=== PATIENT | male | born 1970 | race Caucasian/White ===

== ENCOUNTER → 2021-01-01 | Outpatient (CLI) | payer OTHER ==
--- NOTE | 2021-01-02 14:33 | ECHO ---
DATE OF PROCEDURE: 01/01/2021 Age: 50 Gender: Male Height: 69 inches Weight: 195 pounds Body Surface Area: 2.04 m2 PATIENT LOCATION: Outpatient. REFERRING PHYSICIAN: Dr. Cyndi Eaton. INDICATION: Dyspnea. MEASUREMENTS: 2D Measurements: RV 3.8 cm LV 4.9 cm Septum 1.2 cm Posterior wall 1.2 cm LA 4.0 cm LVEF 50% Doppler Measurements: AV 1.0 m/s LVOT - 0.85 m/s LVOT diameter 2.1 cm MV-E 87, A 93, EA ratio 0.9 Early mitral deceleration time 218 msec E prime medial 5.3, A prime medial 8, E prime lateral 8 Average E/E prime ratio 13/PCWP 18 mmHg PV (could not be well visualized) RVSP (could not be estimated due to inability to obtain a clear spectral envelope with the observed tricuspid insufficiency). Normal IVC size and collapse against an elevated central venous pressure. COMMENTS: Normal sinus rhythm without intraventricular conduction disturbance. A technically challenging study in light of the patient's prior smoking history, but some diagnostically useful information was still obtained. M-mode and 2-dimensional echocardiography was performed with pulse, continuous wave, color flow, and tissue Doppler studies. Borderline concentric left ventricular hypertrophy with normal wall motion. Mildly dilated left atrium with grade 1 LV diastolic dysfunction and borderline increased estimated mean left atrial pressure. Normal right heart chamber sizes and motion, but we could not accurately estimate his pulmonary arterial pressure. Normal IVC size and collapse against an elevated central venous pressure. Normal aortic dimensions. Normal appearing aortic valve without stenosis or insufficiency. Normal appearing mitral valve with normal leaflet excursion and no posterior systolic buckling. Very mild mitral insufficiency (likely physiologic). Tricuspid valve could not be visualized well but did not appear to be abnormal. No abnormal degree of insufficiency of the valve. No apparent intracardiac mass or pericardial effusion. MTDD
== END ==
LOC: M CARPUL 11:12
PROVIDERS: ATTEND Family Medicine
DX: R06.09 Other forms of dyspnea (principal); I10 Essential (primary) hypertension; I38 Endocarditis, valve unspecified

== ENCOUNTER → 2021-01-30 | Outpatient (CLI) | payer OTHER ==
--- NOTE | 2021-01-30 15:13 | PFTRPT ---
Height: 70.00 Inches Weight: 190.00 Lbs BSA: 2.04 Diagnosis: R91.1 DATE: 01/30/2021 ORDERING PHYSICIAN: Arthur Pierre MD Pre and post bronchodilator studies have excellent technical quality. Forced vital capacity is severely reduced. FEV1 is out of proportion. Obstructive index is therefore reduced. Expiratory limit of the flow-volume loop consistent with very significant flow rate limitation. No significant bronchodilator response is identified. Total lung capacity is elevated. Residual volume is consistent with very significant air trapping. Diffusing capacity is severely reduced but does correct for alveolar volume. Hemoglobin is acceptable at 14.6. Airway resistance and conductance are normal. IMPRESSION: At least moderate obstructive ventilatory impairment with underlying air trapping. No bronchodilator response. Please correlate clinically. MTDD
== END ==
LOC: M CARPUL 14:48
PROVIDERS: ATTEND Internal Medicine Pulmonary Disease
DX: J98.8 Other specified respiratory disorders (principal)

== ENCOUNTER → 2021-03-17 | Outpatient (CLI) | payer OTHER ==
--- NOTE | 2021-03-17 17:48 | REP ---
INDICATION: SOLITARY PULMONARY NODULE R91.1. COMPARISON: CT study from [facility] dated December 27, 2020 describes a 1.1 cm spiculated nodule in the right upper lobe and distal esophageal mural thickening.. TECHNIQUE: Fifty-four minutes following the intravenous injection of a 10.15 mCi dose of F-18 FDG, three-dimensional PET scintigraphy is acquired from the skull base to the proximal thighs. Triplanar noncontrast CT scanning is acquired through the same anatomic range for attenuation correction, and image registration with scan parameters optimized to minimize radiation exposure to the patient. PET scintigraphy and CT datasets were fused and displayed on a workstation with multiplanar and projection display capability. FINDINGS: In the head and neck soft tissues, there is symmetric tonsillar and midline tongue base uptake consistent with lingual tonsillar uptake. No hypermetabolic adenopathy is seen. There is no evidence of hilar or mediastinal vane uptake. There are calcified granulomatous nodules in the right lower lobe and right upper lobe. No soft tissue nodule is appreciated on accompanying CT. There is no abnormal hypermetabolic pulmonary parenchymal uptake. Maximum standard uptake value in the calcified granuloma in the right upper lobe is 1.0. There is a segment of the esophagus demonstrating esophageal thickening and linear hypermetabolic uptake. Hypermetabolic uptake can be seen in the esophageal mucosa as a normal variant but the esophageal wall appears thickened and is must be considered suspicious and correlated endoscopically. Maximum standard uptake value is 12.55. No upper abdominal vane hypermetabolic uptake is appreciated. No abnormal hepatic uptake is seen. Normal adrenal uptake take is appreciated. No abnormal hypermetabolic abdominal or pelvic uptake focus is seen. IMPRESSION: 1. No abnormal hypermetabolic pulmonary parenchymal uptake. Granulomatous calcified nodules in the right upper lobe and right lower lobe. 2. Hypermetabolic uptake in the distal 3rd of the esophagus in combination with a soft SAYRA wall thickening, rule out esophageal malignancy. Endoscopic correlation is recommended. 3. Equivocal uptake in the tonsillar and lingual tonsillar region in the head and neck. <Electronically signed by Holland Cramer > 03/17/21 [id number]
== END ==
LOC: M PLARAD 11:04
PROVIDERS: ATTEND Internal Medicine Pulmonary Disease
DX: R91.1 Solitary pulmonary nodule (principal)
CPT/HCPCS: 78815; A9552

== ENCOUNTER → 2021-04-23 | Outpatient (CLI) | payer OTHER ==
[~2021-04-23] MED LIST: ARNU1INH3 IN; METO25TA4 PO; STIO1AER IN; WELL200T PO
== END ==
LOC: M LABSMTC 11:43
PROVIDERS: ATTEND Anesthesiology
DX: Z01.812 Encounter for preprocedural laboratory examination (principal); Z20.822 Contact with and (suspected) exposure to COVID-19

== ENCOUNTER 2021-04-28 10:29 | Day surgery (SDC) | payer OTHER ==
[~2021-04-28] VITALS: Ht 175.3 cm; Wt 83.0 kg
[~2021-04-28 10:29] MED LIST changes: +LIDOCAINE 2% 100MG/5ML SDV (FOR ANES.) As Ordered ONE; +NS 1,000 ML IV ONE; +propofoL 200 MG/20 ML VIAL As Ordered ONE
--- NOTE | 2021-04-28 12:27 | ROOR ---
Patient Name: Brien Remy Procedure Date: 04/28/2021 12:03 PM Date of : 1970 Age: 50 Room: [facility] Gender: Male Note Status: Finalized Procedure: Upper GI endoscopy Indications: Abnormal PET scan of the GI tract Providers: Jovanny Milan Jr, MD Referring MD: Cyndi Eaton DO Requesting Provider: Medicines: Propofol per Anesthesia Complications: No immediate complications. Procedure: Pre-Anesthesia Assessment: - Prior to the procedure, a History and Physical was performed, and patient medications and allergies were reviewed. The patient is competent. The risks and benefits of the procedure and the sedation options and risks were discussed with the patient. All questions were answered and informed consent was obtained. Patient identification and proposed procedure were verified by the physician and the nurse in the pre-procedure area and in the procedure room. Mental Status Examination: alert and oriented. Airway Examination: normal oropharyngeal airway and neck mobility. Respiratory Examination: clear to auscultation. CV Examination: normal. ASA Grade Assessment: II - A patient with mild systemic disease. After reviewing the risks and benefits, the patient was deemed in satisfactory condition to undergo the procedure. The anesthesia plan was to use moderate sedation / analgesia (conscious sedation). Immediately prior to administration of medications, the patient was re-assessed for adequacy to receive sedatives. The heart rate, respiratory rate, oxygen saturations, blood pressure, adequacy of pulmonary ventilation, and response to care were monitored throughout the procedure. The physical status of the patient was re-assessed after the procedure. The Endoscope was introduced through the mouth, and advanced to the second part of duodenum. The upper GI endoscopy was accomplished without difficulty. The patient tolerated the procedure well. Findings: The upper third of the esophagus and middle third of the esophagus were normal. A large, fungating and ulcerating mass with bleeding and stigmata of recent bleeding was found in the lower third of the esophagus, 38 cm from the incisors. The mass was partially obstructing and partially circumferential (involving one-third of the lumen circumference). Biopsies were taken with a cold forceps for histology. The cardia, gastric fundus, prepyloric region of the stomach and pylorus were normal. Moderate inflammation characterized by congestion (edema), erythema and friability was found in the gastric body. Biopsies were taken with a cold forceps for histology. The duodenal bulb, first portion of the duodenum and second portion of the duodenum were normal. Impression: - Normal upper third of esophagus and middle third of esophagus. - Partially obstructing, likely malignant esophageal tumor was found in the lower third of the esophagus. Biopsied. - Normal cardia, gastric fundus, prepyloric region of the stomach and pylorus. - Gastritis. Biopsied. - Normal duodenal bulb, first portion of the duodenum and second portion of the duodenum. Recommendation: - Discharge patient to home (ambulatory). - Return to my office in 1 week. Procedure Code(s): --- Professional --- 76962, Esophagogastroduodenoscopy, flexible, transoral; with biopsy, single or multiple Diagnosis Code(s): --- Professional --- D49.0, Neoplasm of unspecified behavior of digestive system K29.70, Gastritis, unspecified, without bleeding R93.3, Abnormal findings on diagnostic imaging of other parts of digestive tract CPT copyright 2019 [employer]. All rights reserved. The codes documented in this report are preliminary and upon back seam stitcher review may be revised to meet current compliance requirements. Jovanny Milan MD Jovanny Milan Jr, MD 04/28/2021 12:26:59 PM Electronically signed by Jovanny Milan Jr, MD Number of Addenda: 0 Note Initiated On: 04/28/2021 12:03 PM Estimated Blood Loss: Estimated blood loss: none.
--- NOTE | 2021-04-28 12:49 | ROOR ---
Patient Name: Brien Remy Procedure Date: 04/28/2021 12:04 PM Date of : 1970 Age: 50 Room: [facility] Gender: Male Note Status: Finalized Procedure: Colonoscopy Indications: Screening for colorectal malignant neoplasm Providers: Jovanny Milan Jr, MD Referring MD: Cyndi Eaton DO Requesting Provider: Medicines: Propofol per Anesthesia Complications: No immediate complications. Procedure: Pre-Anesthesia Assessment: - Prior to the procedure, a History and Physical was performed, and patient medications and allergies were reviewed. The patient is competent. The risks and benefits of the procedure and the sedation options and risks were discussed with the patient. All questions were answered and informed consent was obtained. Patient identification and proposed procedure were verified by the physician and the nurse in the pre-procedure area and in the procedure room. Mental Status Examination: alert and oriented. Airway Examination: normal oropharyngeal airway and neck mobility. Respiratory Examination: clear to auscultation. CV Examination: normal. ASA Grade Assessment: II - A patient with mild systemic disease. After reviewing the risks and benefits, the patient was deemed in satisfactory condition to undergo the procedure. The anesthesia plan was to use moderate sedation / analgesia (conscious sedation). Immediately prior to administration of medications, the patient was re-assessed for adequacy to receive sedatives. The heart rate, respiratory rate, oxygen saturations, blood pressure, adequacy of pulmonary ventilation, and response to care were monitored throughout the procedure. The physical status of the patient was re-assessed after the procedure. The Colonoscope was introduced through the anus and advanced to the cecum, identified by appendiceal orifice and ileocecal valve. The colonoscopy was performed without difficulty. The patient tolerated the procedure well. The quality of the bowel preparation was adequate. Findings: Four polyps were found in the recto-sigmoid colon and transverse colon. The polyps were small in size. These polyps were removed with a hot snare. Resection was complete, but the polyp tissue was only partially retrieved. A large polypoid lesion was found in the sigmoid colon. The lesion was semi-pedunculated. Biopsies were taken with a cold forceps for histology. The rectum, descending colon, transverse colon, cecum, appendiceal orifice and ileocecal valve appeared normal. Impression: - Four small polyps at the recto-sigmoid colon and in the transverse colon, removed with a hot snare. Complete resection. Partial retrieval. - Benign polypoid lesion in the sigmoid colon. Biopsied. - The rectum, descending colon, transverse colon, cecum, appendiceal orifice and ileocecal valve are normal. Recommendation: - Discharge patient to home (ambulatory). - Return to my office as previously scheduled. Procedure Code(s): --- Professional --- 86001, Colonoscopy, flexible; with removal of tumor(s), polyp(s), or other lesion(s) by snare technique 41972, 59, Colonoscopy, flexible; with biopsy, single or multiple Diagnosis Code(s): --- Professional --- Z12.11, Encounter for screening for malignant neoplasm of colon K63.5, Polyp of colon D12.5, Benign neoplasm of sigmoid colon CPT copyright 2019 [employer]. All rights reserved. The codes documented in this report are preliminary and upon home appliance washing machine mechanic review may be revised to meet current compliance requirements. Jovanny Milan MD Jovanny Milan Jr, MD 04/28/2021 12:49:01 PM Electronically signed by Jovanny Milan Jr, MD Number of Addenda: 0 Note Initiated On: 04/28/2021 12:04 PM Estimated Blood Loss: Estimated blood loss: none.
[2021-04-28 13:10] VITALS: BP 168/89
== END 2021-04-28 13:30 | disposition home or self-care (01) ==
LOC: M OPP 10:29
PROVIDERS: ATTEND Surgery
DX: Z12.11 Encounter for screening for malignant neoplasm of colon (principal); C15.5 Malignant neoplasm of lower third of esophagus; K29.70 Gastritis, unspecified, without bleeding; R93.3 Abnormal findings on diagnostic imaging of other parts of digestive tract; Z79.899 Other long term (current) drug therapy; F17.210 Nicotine dependence, cigarettes, uncomplicated

== ENCOUNTER → 2021-05-19 | Outpatient (CLI) | payer OTHER ==
[~2021-05-19] MED LIST changes: +ALBU8.5H INH; -LIDOCAINE 2% 100MG/5ML SDV (FOR ANES.) As Ordered ONE; -NS 1,000 ML IV ONE; -propofoL 200 MG/20 ML VIAL As Ordered ONE
[2021-05-19 16:59] LABS: BASO # 0.1 10^3/uL (0.0-0.2); BASO % 0.7 % (0.0-1.0); EOS # 0.1 10^3/uL (0.0-0.5); EOS % 0.7 % (0.0-3.0); HEMATOCRIT 52.7 % (42.0-52.0); HEMOGLOBIN 17.7 g/dl (13.5-17.5); LYMPH # 1.8 10^3/uL (1.5-5.0); LYMPH % 15.8 % (24.0-44.0); MEAN CORPUSCULAR HEMOGLOBIN 31.7 pg (27.0-33.0); MEAN CORPUSCULAR HGB CONC 33.6 g/dl (32.0-36.5); MEAN CORPUSCULAR VOLUME 94.4 fl (80.0-96.0); MONO # 0.9 10^3/uL (0.0-0.8); MONO % 8.1 % (2.0-8.0); NEUTROPHILS # 8.4 10^3/uL (1.5-8.5); NEUTROPHILS % 74.3 % (36.0-66.0); PLATELET COUNT, AUTOMATED 233 10^3/uL (150-450); RED BLOOD COUNT 5.58 10^6/uL (4.30-6.10); WHITE BLOOD COUNT 11.2 10^3/uL (4.0-10.0)
[2021-05-19 17:23] LABS: ALBUMIN 3.7 GM/DL (3.2-5.2); ALT/SGPT 15 U/L (12-78); BILIRUBIN,TOTAL 0.4 MG/DL (0.2-1.0); BLOOD UREA NITROGEN 11 MG/DL (7-18); CALCIUM LEVEL 9.1 MG/DL (8.5-10.1); CARBON DIOXIDE LEVEL 33 MEQ/L (21-32); CHLORIDE LEVEL 108 MEQ/L (98-107); CREATININE FOR GFR 0.96 MG/DL (0.70-1.30); FERRITIN 116 NG/ML (26-388); GLOMERULAR FILTRATION RATE > 60.0 (>56); GLUCOSE, FASTING 98 MG/DL (70-100); IRON (FE) 63 UG/DL (65-175); PERCENT SATURATION 19.6 % (19.7-50.0); POTASSIUM SERUM 4.7 MEQ/L (3.5-5.1); SODIUM LEVEL 143 MEQ/L (136-145); TOTAL IRON BINDING CAPACITY 321 UG/DL (250-450); TOTAL PROTEIN 7.1 GM/DL (6.4-8.2)
== END ==
LOC: M LAB 16:25
PROVIDERS: ATTEND Internal Medicine Medical Oncology
DX: C15.9 Malignant neoplasm of esophagus, unspecified (principal)

== ENCOUNTER → 2021-05-22 | Outpatient (CLI) | payer OTHER ==
--- NOTE | 2021-05-22 14:23 | RADONC.CN ---
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 He is seen today for consideration of neoadjuvant therapy. Diagnosis/Treatment History Oncologic History Followed by Dr. Pierre for solitary RUL nodule 12/27/20 CT chest showing 1.1 cm apical RUL nodule and distal esophageal thickening 03/17/21 PET-CT showing no uptake in the RUL nodule, morphology consistent with calcified granuloma, and distal esophageal uptake and thickening SUV 12.55. 04/28/21 EGD/colonoscopy with Dr. Milan showing distal esophageal partially obstructing mass, biopsy showing adenocarcinoma poorly differentiated HER2-. No significant colonoscopy findings. Relevant data: 03/17/21 PET-CTFINDINGS: In the head and neck soft tissues, there is symmetric tonsillar and midline tongue base uptake consistent with lingual tonsillar uptake. No hypermetabolic adenopathy is seen. There is no evidence of hilar or mediastinal vane uptake. There are calcified granulomatous nodules in the right lower lobe and right upper lobe. No soft tissue nodule is appreciated on accompanying CT. There is no abnormal hypermetabolic pulmonary parenchymal uptake. Maximum standard uptake value in the calcified granuloma in the right upper lobe is 1.0. There is a segment of the esophagus demonstrating esophageal thickening and linear hypermetabolic uptake. Hypermetabolic uptake can be seen in the esophageal mucosa as a normal variant but the esophageal wall appears thickened and is must be considered suspicious and correlated endoscopically. Maximum standard uptake value is 12.55. No upper abdominal vane hypermetabolic uptake is appreciated. No abnormal hepatic uptake is seen. Normal adrenal uptake take is appreciated. No abnormal hypermetabolic abdominal or pelvic uptake focus is seen. IMPRESSION: 1. No abnormal hypermetabolic pulmonary parenchymal uptake. Granulomatous calcified nodules in the right upper lobe and right lower lobe. 2. Hypermetabolic uptake in the distal 3rd of the esophagus in combination with a soft SAYRA wall thickening, rule out esophageal malignancy. Endoscopic correlation is recommended. 3. Equivocal uptake in the tonsillar and lingual tonsillar region in the head and neck. 01/30/21 PFTs FVC 2.41 47% pred FEV1 1.16 29% pred FEV1/FVC 48% 78% pred DLCO 17 55% pred Moderate/severe COPD Interval History Here alone, reports he lives alone, does not have much social support. He does not work due to his COPD. He has ALVAREZ and dry cough. Sometimes notes substernal chest pain, non-exertional. Also has some reflux like burning from time to time. He has no weight loss. He has no dysphagia or odynophagia. No fevers or chills. Past Medical History: COPD HTN Past Surgical History: Heart surgery as a child, unknown pathology Family History: Mother lung cancer Father lung cancer Social History: 35 pack year current smoker, 1ppd Never drinker Smokes marijuana Field Sales Executive, disabled Allergies / Meds Allergies: Coded Allergies: No Known Allergies (Unverified , 04/18/21) Home Meds Reported Medications Albuterol Sulfate (Albuterol Sulfate Hfa) 8.5 Gm Hfa.aer.ad, 2 PUFF INH QIDP 05/19/21 Fluticasone Furoate (Arnuity Ellipta) 200 Mcg Blst.w.dev, 1 PUFF IN DAILY 04/18/21 Tiotropium Br/Olodaterol HCl (Stiolto Respimat Inhal Shaniko) 4 Gm Mist.inhal, 2 PUFF IN DAILY 04/18/21 Bupropion HCl (Wellbutrin Sr) 200 Mg Tab.sr.12h, 400 MG PO BID, TAB 04/18/21 Metoprolol Tartrate (Metoprolol Tartrate) 25 Mg Tablet, 25 MG PO BID, TAB 04/18/21 Review of Systems Constitutional: Reports: Fatigue; Denies: Weight Loss Eyes: Denies: Pain HEENT: Denies: Head Aches Skin: Denies: Rash, Lesions Pulmonary: Reports: Dyspnea, Cough; Denies: Pleuritic Chest Pain Cardiovascular: Denies: Palpitations, Edema Gastrointestinal: Denies: Nausea, Vomiting, Abdominal Pain, Melena, Hematochezia Hematologic: Denies: Bruising, Bleeding Excessively Endocrine: Denies: Polydipsia, Cold Intolerance Musculoskeletal: Denies: Neck pain, Back pain, Leg pain Neurological: Denies: Weakness, Numbness Psych: Reports: Mood Normal Vital Signs Ht 69" Wt 188 lbs BMI 27.7 T 98 P 78 RR 20 BP 155/106 O2 94% Pain 0 Fatigue 0 General Exam: Alert, Cooperative, No Acute Distress Eye Exam: PERRLA, EOMI ENT EXAM: Atraumatic, Pharynx Normal Neck Exam: Supple; Negative: Lymphadenopathy Chest Exam: Clear to auscultation, Wheezing Heart Exam: Rate Normal, Regular Rhythm Abdomen Exam: Soft; Negative: Tenderness Extremity Exam: Negative: Cyanosis, Edema Skin Exam: Nl turgor and temperature Neuro Exam: Normal Gait, Normal Speech, Cranial Nerves 3-12 NL Psych Exam: Mental status NL Diagnostic and Laboratory Diagnostic Review Radiologic images, relevant labs and pathology reports were personally reviewed and discussed with Mr. Remy. Assessment and Plan Impression Mr. 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 He is seen today for consideration of neoadjuvant therapy. Stage Pending distal esophageal adenocarcinoma [id number] grade 3 HER2- Performance Status ECOG 1 Plan We had an extensive discussion with Mr. Remy regarding the diagnosis at hand and available therapeutic options. I spent 4 minutes discussing smoking cessation with the patient, he desires to quit but admits to smoking more recently because he is stressed about his diagnosis. He has filled but not started a wellbutrin prescription. I encouraged him to do this, if not for smoking cessation but because the medication may also help alleviate his anxiety. He agreed. I am available to assist in his quit at [facility] in any way I can. I reviewed his imaging to date, his initial PET-CT is from February and so has lapsed. I will reorder a PET-CT next available for more current staging and treatment planning purposes. I do agree that the morphology of the RUL nodule is consistent with a granuloma as he has several similar but smaller lesions inferiorly as well. All were without pathologic uptake on PET-CT He has what appears to be localized disease, thus the preferred approach to treatment would be neoadjuvant therapy, either FLOT, or chemoradiation, followed by surgical resection and then if chemoradiation he could be eligible for nivolumab in the adjuvant setting if there is residual disease on the resection specimen. The limiting factor could be his poor pulmonary reserve. He also has a history of heart surgery as a child for unknown pathology (he couldn't remember the indication). He has seen Dr. Rodríguez who referred him to Dr. Tsai at [facility] for surgical consideration. I will email Dr. Tsai and their nurse navigator separately. If he is not an surgical candidate I would proceed with definitive chemoradiation. I discussed in general radiation with weekly chemotherapy would be for 4-6 weeks depending on intent. We discussed the logistics of receiving radiation therapy in detail including the need for a 1-time planning session. This can occur after his surgical consultation. I discussed the side effects of RT in detail including esophagitis, pain, weight loss, skin reaction, pneumonitis, and late cardiac toxicity. I will also refer the patient to our for ride and community resource assistance and he has limited support in place. After discussing the risks, benefits and alternatives to radiation therapy, Mr. Remy was amenable to pursuing radiotherapy. All questions were answered to the patient's satisfaction. We instructed the patient that if there were any questions,concerns or changes in clinical status in the interim to contact us. Recommendations Surgical referral to [facility] Neoadjuvant chemoradiation versus definitive chemoradiation Simulation pending surgical consultation Repeat PET-CT now Billing Statement Total time of [61] minutes was spent preparing for the visit [5], obtaining HPI [10], examining the patient [5], reviewing diagnostic tests [8], discussing management options [18], coordinating care [6], and writing this note [9]. RAYMOND HERNANDEZ MD May 22, 2021 14:23
== END ==
LOC: M ONCR 09:51
PROVIDERS: ATTEND General Practice
DX: C15.5 Malignant neoplasm of lower third of esophagus (principal); F17.210 Nicotine dependence, cigarettes, uncomplicated; I10 Essential (primary) hypertension; J44.9 Chronic obstructive pulmonary disease, unspecified; R12 Heartburn; R91.1 Solitary pulmonary nodule; Z80.1 Family history of malignant neoplasm of trachea, bronchus and lung

== ENCOUNTER → 2021-05-30 | Outpatient (CLI) | payer OTHER ==
[~2021-05-30] MED LIST changes: +GASTROGRAFIN SOLUTION 30ML (Q9963) As Ordered ONE; +ISOVUE-370 76% 100ML VIAL As Ordered ONE
--- NOTE | 2021-05-30 17:40 | REP ---
INDICATION: ESO CA, RESTAGING. COMPARISON: Comparison CT study of the chest is from December 27, 2020. TECHNIQUE: Helical scanning is acquired following the intravenous injection of 100 mL of Isovue 370. Oral contrast was administered as well. 3 mm axial images re-formatted. Coronal and sagittal MPR images are provided. FINDINGS: Digital preliminary casting carrier radiograph demonstrates hyperinflated lungs and some linear fibrosis on the left. There is no evidence of pleural or pericardial effusion. No hilar or mediastinal adenopathy is seen. There is mid irregular mural thickening in the distal 3rd of the thoracic esophagus just above the GE junction consistent with the history of esophageal malignancy. No paraesophageal or celiac axis upper abdominal adenopathy is appreciated. There are advanced emphysematous changes in the upper lobes of the lungs bilaterally. There are scattered granulomatous calcifications in seen in the right lower lobe, and right lung apex. Below the apical granuloma on the right which was seen in November of 2020, there is a new noncalcified nodular density in the right upper lobe. This measures 1.1 x 0.8 cm in greatest transverse dimension and is displayed on page 28 of 6124 in series 204 of today's study. On coronal and sagittal multiplanar re-formation images this has a more elongate configuration raising question of inflammatory etiology. In any event, it is new from when compared with the November 2020 study. There is a faintly visualized 3 mm nodule elsewhere in the right upper lobe, page 34 which is unchanged from December 27, 2020. No other significant pulmonary nodule is appreciated. No adrenal mass is seen. No bony destructive lesion is appreciated. IMPRESSION: Mural thickening and irregular mass effect in the distal esophagus consistent with history of soft G0 malignancy. There is 1 new nodular density in the right upper lobe not seen on the December 27, 2020 study. This is nonspecific. There are granulomatous calcifications. Emphysematous changes are seen. No evidence of adenopathy [facility] <Electronically signed by Holland Cramer > 05/30/21 [id number]
--- NOTE | 2021-05-30 17:50 | REP ---
INDICATION: ESO CA, RESTAGING. COMPARISON: Comparison is made with PET-CT images from March 17, 2021. TECHNIQUE: Helical scanning is acquired and 3 mm axial images re-formatted. Coronal and sagittal MPR images are generated. The CT contrast enhancement dose is 100 mL of intravenous Isovue 370. Oral contrast was also administered. FINDINGS: There is a small 1 cm cyst in the right lobe of the liver. No focal hepatic lesion is seen. There is no evidence of retrocrural, Arelis off a SAYRA, or celiac axis adenopathy. No abnormality is noted in the gallbladder or pancreas. No adrenal mass is seen on either side. 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 Right kidney is morphologically intact. No retroperitoneal mass or adenopathy is seen. Small and large intestinal bowel loops are normal in the abdomen and pelvis. There is left colonic diverticulosis without CT evidence of diverticulitis. Seminal vesicles, prostate, and urinary bladder are unremarkable. No abdominal wall defect is seen. No bony destructive lesion is appreciated. IMPRESSION: No abdominal or pelvic mass or adenopathy. Distal esophageal lesion again seen. <Electronically signed by Holland Cramer > 05/30/21 [id number]
== END ==
LOC: M RAD 15:04
PROVIDERS: ATTEND General Practice
DX: C15.5 Malignant neoplasm of lower third of esophagus (principal); R91.8 Other nonspecific abnormal finding of lung field; K76.89 Other specified diseases of liver; K57.30 Diverticulosis of large intestine without perforation or abscess without bleeding
CPT/HCPCS: 71260; 74177; Q9963; Q9967

== ENCOUNTER 2021-06-27 08:34 | Outpatient (RCR) | payer OTHER ==
[~2021-06-27 08:34] MED LIST changes: -GASTROGRAFIN SOLUTION 30ML (Q9963) As Ordered ONE; -ISOVUE-370 76% 100ML VIAL As Ordered ONE; +ONDA8TAB10 PO; +PRED50TA PO; +PROC10TA4 PO
[2021-06-30] MEDS ORDERED: MAGICMW PO (09:35)
== END 2021-06-29 ==
LOC: M ONCR 08:34
PROVIDERS: ATTEND General Practice
DX: C15.5 Malignant neoplasm of lower third of esophagus (principal)

== ENCOUNTER → 2021-07-29 | Outpatient (RCR) | payer OTHER ==
[~2021-07-29] MED LIST changes: +LIDVISCBTL PO; +MAGICMW PO; +NYST50SS PO; +ONDA-84 PO; -ONDA8TAB10 PO; +OXYC1SOL3 PO; -PROC10TA4 PO; +PROC10TA5 PO
== END ==
LOC: M ONCR 06-30 08:42
PROVIDERS: ATTEND General Practice
DX: C15.5 Malignant neoplasm of lower third of esophagus (principal)

== ENCOUNTER 2021-07-30 08:39 | Outpatient (RCR) | payer OTHER ==
[~2021-07-30 08:39] MED LIST changes: -ONDA-84 PO; +ONDA8TAB10 PO; +PROC10TA4 PO; -PROC10TA5 PO
== END 2021-08-29 ==
LOC: M ONCR 08:39
PROVIDERS: ATTEND General Practice
DX: C15.5 Malignant neoplasm of lower third of esophagus (principal)

== ENCOUNTER → 2021-10-30 | Outpatient (CLI) | payer OTHER ==
[~2021-10-30] MED LIST changes: +ONDA-84 PO; -ONDA8TAB10 PO; -PROC10TA4 PO; +PROC10TA5 PO
== END ==
LOC: M ONCR 09:06
PROVIDERS: ATTEND General Practice
DX: C15.5 Malignant neoplasm of lower third of esophagus (principal); F17.210 Nicotine dependence, cigarettes, uncomplicated; J44.9 Chronic obstructive pulmonary disease, unspecified; R91.1 Solitary pulmonary nodule; Z79.899 Other long term (current) drug therapy; Z92.3 Personal history of irradiation

== ENCOUNTER → 2021-11-05 | Outpatient (CLI) | payer OTHER ==
[~2021-11-05] MED LIST changes: +GASTROGRAFIN SOLUTION 30ML (Q9963) As Ordered ONE; +ISOVUE-370 76% 100ML VIAL As Ordered ONE
== END ==
LOC: M RAD 09:35
PROVIDERS: ATTEND General Practice
DX: C15.5 Malignant neoplasm of lower third of esophagus (principal)
CPT/HCPCS: 71260; 74177; Q9963; Q9967

== ENCOUNTER 2021-12-16 08:58 | Outpatient (RCR) | payer OTHER ==
[~2021-12-16 08:58] MED LIST changes: -GASTROGRAFIN SOLUTION 30ML (Q9963) As Ordered ONE; -ISOVUE-370 76% 100ML VIAL As Ordered ONE
== END 2021-12-27 ==
LOC: M ONCR 08:58
PROVIDERS: ATTEND General Practice
DX: C34.11 Malignant neoplasm of upper lobe, right bronchus or lung (principal)

== ENCOUNTER 2022-01-06 12:40 | Outpatient (RCR) | payer OTHER | END 2022-01-27 | LOC: M ONCR 12:40 | PROVIDERS: ATTEND General Practice | DX: C34.11 Malignant neoplasm of upper lobe, right bronchus or lung (principal) ==

== ENCOUNTER → 2022-04-07 | Outpatient (CLI) | payer OTHER ==
[~2022-04-07] MED LIST changes: +GASTROGRAFIN SOLUTION 30ML (Q9963) As Ordered ONE; +ISOVUE-370 76% 100ML VIAL As Ordered ONE
== END ==
LOC: M RAD 13:54
PROVIDERS: ATTEND General Practice
DX: C15.5 Malignant neoplasm of lower third of esophagus (principal); C34.11 Malignant neoplasm of upper lobe, right bronchus or lung
CPT/HCPCS: 71260; 74177; Q9963; Q9967

== ENCOUNTER 2022-09-23 10:15 | Outpatient (RCR) | payer OTHER ==
[~2022-09-23 10:15] MED LIST changes: +ACET1TAB55 PO; +DEXA2TA PO; +FLUT1BLS8 INH; -GASTROGRAFIN SOLUTION 30ML (Q9963) As Ordered ONE; -ISOVUE-370 76% 100ML VIAL As Ordered ONE; +NYST-38 PO; -NYST50SS PO; +OCEA0.654 NARES
== END 2022-09-24 ==
LOC: M ONCR 10:15
PROVIDERS: ATTEND General Practice
DX: C79.31 Secondary malignant neoplasm of brain (principal)